=== PATIENT | female | born 1985 | race Caucasian/White ===

== ENCOUNTER 2017-05-06 09:30 | Observation (INO) | payer MEDICAID ==
[~2017-05-06] VITALS: Ht 170.2 cm; Wt 68.0 kg
[2017-05-06] MEDS ORDERED: PRENA1 CHEW TA1.4 M1 PO (10:42)
[2017-05-06] MEDS ORDERED: DICLEGIS DR 101 EACH PO (10:43)
== END 2017-05-06 11:53 ==
LOC: LDR 09:30
PROVIDERS: ADMIT Obstetrics & Gynecology
DX: Z03.71 Encounter for suspected problem with amniotic cavity and membrane ruled out (principal); Z3A.28 28 weeks gestation of pregnancy